=== PATIENT | male | born 1955 | race Caucasian/White ===

== ENCOUNTER → 2017-02-04 | Outpatient (CLI) | payer OTHER ==
[~2017-02-04] MED LIST: LITE COAT ASPI325 M1 PO
== END | disposition home or self-care (01) ==
LOC: CDC 08:44
DX: Z01.810 Encounter for preprocedural cardiovascular examination (principal); K42.9 Umbilical hernia without obstruction or gangrene; R94.31 Abnormal electrocardiogram [ECG] [EKG]
CPT/HCPCS: 93000

== ENCOUNTER 2017-02-10 10:03 | Day surgery (SDC) | payer OTHER ==
[~2017-02-10] VITALS: Ht 180.3 cm; Wt 101.1 kg
[2017-02-10 10:37] VITALS: BP 132/81
[2017-02-10] MEDS ORDERED: NORCO 5/3251 TABLET PO (14:00)
[2017-02-10] MEDS ORDERED: PERCOCET 5/31 TABLET PO (14:00)
[2017-02-10 14:32] VITALS: BP 131/74
[2017-02-10 15:42] VITALS: BP 119/69
[2017-02-10 16:07] VITALS: BP 136/76
== END 2017-02-10 16:19 | disposition home or self-care (01) ==
LOC: SDC 10:03
PROC: 0WUF4JZ Supplement Abdominal Wall with Synthetic Substitute, Percutaneous Endoscopic Approach (ICD-10-PCS; principal; 2017-02-10)
DX: K42.0 Umbilical hernia with obstruction, without gangrene (principal); Z79.82 Long term (current) use of aspirin; Z87.891 Personal history of nicotine dependence
CPT/HCPCS: C1781; J0330; J0690; J1100; J1170; J1885; J2250; J2405; J2710; J3010; J7120